=== PATIENT | male | born 2000 | race Caucasian/White ===

== ENCOUNTER 2024-06-13 12:01 | Inpatient (IN) | payer OTHER ==
[~2024-06-13] VITALS: Ht 180.3 cm; Wt 79.3 kg
[2024-06-13 16:10] VITALS: BP 117/56; PULSE 73; RESP 20; TEMP 98.3; O2SAT 100
[2024-06-13 20:00] VITALS: BP 105/59; PULSE 73; RESP 20; TEMP 100; O2SAT 99
[2024-06-13] MEDS: COLD CREAM, SKIN EMOLLIENT 340 GM JAR TP SCH (21:24)
[2024-06-13] MEDS: AMOXICILLIN TRIHYDRATE 500 MG CAPSULE PO SCH (21:25)
[2024-06-13] MEDS: APIXABAN 5 MG TABLET PO SCH (21:25)
[2024-06-13] MEDS: ETHYL ALCOHOL 62% ANTISEPTIC NASAL SANITIZER 0.6 ML AMPUL NASAL SCH (21:25)
[2024-06-13] MEDS: ACETAMINOPHEN 325 MG TABLET PO PRN (21:31)
[2024-06-14] VITALS: TEMP 98.2
[2024-06-14 08:05] VITALS: BP 115/54; PULSE 67; RESP 18; TEMP 98.5; O2SAT 99
[2024-06-14] MEDS: FERROUS SULFATE 325 MG EC TABLET PO SCH (08:05)
[2024-06-14] MEDS: PANTOPRAZOLE SODIUM 40 MG DR TABLET PO SCH (08:05)
[2024-06-14 08:58] LABS: BASOPHILS % (AUTO) 1.2 % (0.0-2.0); EOSINOPHILS % (AUTO) 1.9 % (1.0-6.0); HEMATOCRIT 26.6 % (41-53); HEMOGLOBIN 8.9 g/dL (13.5-17.5); LYMPHOCYTES # (AUTO) 1.7 K/uL (1.0-4.8); MEAN CORPUSCULAR HGB CONC 33.3 G/dL (31.0-37.0); MEAN CORPUSCULAR VOLUME 90 fL (80-100); MONOCYTES # (AUTO) 0.8 K/uL (0.1-1.0); MONOCYTES % (AUTO) 8.7 % (2.0-9.0); NEUTROPHILS # (AUTO) 6.3 K/uL (1.8-7.7); NEUTROPHILS % (AUTO) 69.2 % (40.0-70.0); PLATELET COUNT (AUTO) 502 K/uL (150-450); RED BLOOD CELL COUNT(AUTO) 2.96 MIL/uL (4.50-5.90); RED CELL DISTRIBUTION WIDTH 13.3 % (11.5-14.5)
[2024-06-14 09:13] LABS: ALANINE AMINOTRANSFERASE 402 U/L (12-78); ALBUMIN 2.5 g/dL (3.4-5.0); ALKALINE PHOSPHATASE 410 U/L (46-116); ANION GAP 6 mmol/L (8-16); ASPARTATE AMINOTRANSFERASE 201 U/L (15-37); BILIRUBIN,TOTAL 0.8 mg/dL (0.1-1.0); CALCIUM, TOTAL 9.7 mg/dL (8.8-10.5); CARBON DIOXIDE 28 mmol/L (22-29); CHLORIDE 102 mmol/L (98-107); CREATININE 0.86 mg/dL (0.60-1.30); GLOMERULAR FILTR. RATE CALC > 60 mL/min (>60); GLUCOSE,RANDOM 100 mg/dL (70-110); POTASSIUM 4.2 mmol/L (3.5-5.1); SODIUM SERUM 136 mmol/L (136-145); TOTAL PROTEIN, SERUM 8.4 g/dL (6.4-8.2); UREA NITROGEN, BLOOD 23 mg/dL (7-18)
[2024-06-14 20:44] VITALS: BP 114/57; PULSE 75; RESP 18; TEMP 98.6; O2SAT 95
[2024-06-14 22:59] VITALS: O2SAT 95
[2024-06-15 08:05] VITALS: BP 121/67; PULSE 73; RESP 18; TEMP 99; O2SAT 99
[2024-06-15 08:45] VITALS: TEMP 98.2
[2024-06-15 20:14] VITALS: BP 115/52; PULSE 75; RESP 18; TEMP 98.6; O2SAT 98
[2024-06-15] MEDS: MELATONIN 3 MG TABLET PO PRN (20:28)
[2024-06-15 22:27] VITALS: O2SAT 98
[2024-06-16 08:00] VITALS: BP 117/58; PULSE 72; RESP 18; TEMP 98.6; O2SAT 99
[2024-06-16 20:00] VITALS: BP 119/57; PULSE 75; RESP 18; TEMP 98.3; O2SAT 99
[2024-06-17] MEDS: APIXABAN 5 MG TABLET PO SCH (07:56)
[2024-06-17 08:00] VITALS: BP 107/58; PULSE 68; RESP 18; TEMP 97.9; O2SAT 98
[2024-06-17 20:00] VITALS: BP 110/52; PULSE 71; RESP 18; TEMP 99.8; O2SAT 98
[2024-06-18 08:00] VITALS: O2SAT 97
[2024-06-18 08:31] VITALS: BP 104/53; PULSE 65; RESP 18; TEMP 97; O2SAT 97
[2024-06-18 20:09] VITALS: BP 113/56; PULSE 75; RESP 18; TEMP 98.2; O2SAT 97
[2024-06-18 21:46] VITALS: O2SAT 97
[2024-06-18] MEDS ORDERED: APIX5TAB PO (23:03)
[2024-06-18] MEDS ORDERED: PANT-31 PO (23:05)
[2024-06-18] MEDS ORDERED: FERR325T27 PO (23:08)
[2024-06-19 08:00] VITALS: BP 104/55; PULSE 62; RESP 18; TEMP 98.3; O2SAT 100
[2024-06-19 20:02] VITALS: BP 105/60; PULSE 73; RESP 18; TEMP 98.6; O2SAT 100
[2024-06-19 22:42] VITALS: O2SAT 100
[2024-06-20 06:55] LABS: BASOPHILS % (AUTO) 1.2 % (0.0-2.0); EOSINOPHILS % (AUTO) 6.6 % (1.0-6.0); HEMATOCRIT 28.3 % (41-53); HEMOGLOBIN 9.4 g/dL (13.5-17.5); LYMPHOCYTES # (AUTO) 1.9 K/uL (1.0-4.8); LYMPHOCYTES % (AUTO) 21.4 % (22.0-44.0); MEAN CORPUSCULAR HEMOGLOBIN 29.2 pg (26.0-34.0); MEAN CORPUSCULAR HGB CONC 33.2 G/dL (31.0-37.0); MEAN CORPUSCULAR VOLUME 88 fL (80-100); MONOCYTES # (AUTO) 0.8 K/uL (0.1-1.0); MONOCYTES % (AUTO) 9.2 % (2.0-9.0); NEUTROPHILS # (AUTO) 5.5 K/uL (1.8-7.7); NEUTROPHILS % (AUTO) 61.6 % (40.0-70.0); PLATELET COUNT (AUTO) 468 K/uL (150-450); RED BLOOD CELL COUNT(AUTO) 3.22 MIL/uL (4.50-5.90); RED CELL DISTRIBUTION WIDTH 13.3 % (11.5-14.5); WHITE BLOOD COUNT (AUTO) 8.9 K/uL (4.5-11.0)
[2024-06-20 07:13] LABS: ALANINE AMINOTRANSFERASE 167 U/L (12-78); ALBUMIN 2.6 g/dL (3.4-5.0); ALKALINE PHOSPHATASE 236 U/L (46-116); ANION GAP 6 mmol/L (8-16); ASPARTATE AMINOTRANSFERASE 57 U/L (15-37); BILIRUBIN,TOTAL 0.6 mg/dL (0.1-1.0); CALCIUM, TOTAL 9.7 mg/dL (8.8-10.5); CARBON DIOXIDE 28 mmol/L (22-29); CHLORIDE 102 mmol/L (98-107); CREATININE 0.96 mg/dL (0.60-1.30); GLOMERULAR FILTR. RATE CALC > 60 mL/min (>60); GLUCOSE,RANDOM 91 mg/dL (70-110); POTASSIUM 4.2 mmol/L (3.5-5.1); SODIUM SERUM 136 mmol/L (136-145); TOTAL PROTEIN, SERUM 8.2 g/dL (6.4-8.2); UREA NITROGEN, BLOOD 17 mg/dL (7-18)
[2024-06-20 08:00] VITALS: BP 112/65; PULSE 58; RESP 16; TEMP 97.9; O2SAT 99
[2024-06-20 20:00] VITALS: BP 116/53; PULSE 71; RESP 17; TEMP 98.9; O2SAT 100
[2024-06-20 23:30] VITALS: O2SAT 100
[2024-06-21 08:16] VITALS: BP 109/59; PULSE 72; RESP 18; TEMP 99; O2SAT 100
[2024-06-21 08:17] VITALS: O2SAT 100
[2024-06-21 19:37] VITALS: BP 110/52; PULSE 70; RESP 16; TEMP 98.4; O2SAT 99
[2024-06-21 19:43] VITALS: O2SAT 99
[2024-06-22 08:40] VITALS: BP 108/53; PULSE 65; RESP 16; TEMP 98.4; O2SAT 99
[2024-06-22 20:01] VITALS: BP 103/68; PULSE 82; RESP 18; TEMP 97.7; O2SAT 99
[2024-06-22 20:02] VITALS: O2SAT 99
[2024-06-23 08:20] VITALS: BP 103/55; PULSE 61; RESP 18; TEMP 98; O2SAT 99
[2024-06-23 10:27] VITALS: O2SAT 99
[2024-06-23] MEDS ORDERED: APIX5TAB PO (11:11)
[2024-06-23] MEDS ORDERED: PANT-31 PO (11:11)
[2024-06-23] MEDS ORDERED: FERR325T27 PO (11:11)
[2024-06-23] MEDS ORDERED: AMOX500C2 PO (11:11)
== END 2024-06-23 12:30 | disposition home or self-care (01) | DRG 867 ==
LOC: 2WR 16:00
PROVIDERS: ADMIT Physical Medicine & Rehabilitation; ATTEND Physical Medicine & Rehabilitation
DX: A48.3 Toxic shock syndrome (principal); J16.0 Chlamydial pneumonia; J90 Pleural effusion, not elsewhere classified; I82.602 Acute embolism and thrombosis of unspecified veins of left upper extremity; D64.9 Anemia, unspecified; D69.6 Thrombocytopenia, unspecified; E87.70 Fluid overload, unspecified; K81.9 Cholecystitis, unspecified; M60.9 Myositis, unspecified; R74.01 Elevation of levels of liver transaminase levels; M25.512 Pain in left shoulder; Z74.09 Other reduced mobility; R53.81 Other malaise; M25.551 Pain in right hip; M25.561 Pain in right knee; R26.89 Other abnormalities of gait and mobility; R05.9 Cough, unspecified; R50.9 Fever, unspecified; R53.83 Other fatigue; R74.8 Abnormal levels of other serum enzymes; M25.461 Effusion, right knee; M25.462 Effusion, left knee; E80.6 Other disorders of bilirubin metabolism; R53.1 Weakness; R19.7 Diarrhea, unspecified; Z79.01 Long term (current) use of anticoagulants; Z79.899 Other long term (current) drug therapy; Z91.013 Allergy to seafood
CPT/HCPCS: 80053; 85025; 87081; 97110; 97112; 97116; 97162; 97167; 97530; 97535; 99285; 99366